=== PATIENT | female | born 1955 | race Caucasian/White ===

== ENCOUNTER 2024-01-11 08:09 | Observation (INO) ==
--- NOTE | 2024-01-10 09:37 | Anesthesiology Consultation ---
Date of Service January 10, 2024 Assessment & Plan (1) Encounter for pre-operative examination: Chart Review Chart Review: Pending: Refer to Additional Notes / Consult section (please obtain most recent note from Pulm ( in [place]) and most recent cardio note/testing ([facility]; per PCP note pt had ECHO 10/19/22) for more information) and Patient NOT seen in Pre Admission Testing -Patient is currently scheduled as 23hr OBS. She is NOT a candidate for OPJ per anesthesia guidelines. -CBC ordered for AM of surgery (plt count: 123 on 12/23/23 preop labs) Infectious Disease screening: Per PAT nursing assessment on 01/10/24, No known infectious disease contacts in past 10 days or current infectious disease symptoms. No recent travel outside the country. History Surgery Operation Date: 01/11/24 10:25 Proposed Procedures p Left Total Knee Arthroplasty - Dieudonne Mina MD Height/Weight Height: 5 ft Weight: 79.832 kg Allergies Allergy/AdvReac Type Severity Reaction Status Date / Time No Known Allergies Allergy Verified 01/10/24 07:54 Medications Home Medications Medication Instructions Recorded Confirmed Last Taken Fluid Pill 1 tab PO QAM 01/10/24 01/10/24 Unknown albuterol sulfate 90 mcg/actuation 2 puff inhalation Q6H PRN sob 01/10/24 01/10/24 Unknown aerosol inhaler gabapentin 300 mg capsule 600 mg PO HS 01/10/24 01/10/24 Unknown pramipexole 0.25 mg tablet 0.5 mg PO HS 01/10/24 01/10/24 Unknown simvastatin 40 mg tablet 40 mg PO HS 01/10/24 01/10/24 Unknown valsartan 40 mg tablet 40 mg PO BID 01/10/24 01/10/24 Unknown Past Medical History Medical History (Updated 01/10/24 @ 10:03 by Stacy Jacobsen PA-C) Cigarette smoker COPD (chronic obstructive pulmonary disease) prn inh>1-2x per day History of palpitations f/u [facility] Hyperlipidemia Hypertension Iron deficiency anemia Neuropathy Obesity On home oxygen therapy 3L HS and PRN during day (pt states does not use during the day) RICK (obstructive sleep apnea) uses 3L O2 at night, no CPAP RLS (restless legs syndrome) Urinary incontinence follows with urology; receives botox injections Past Surgical History Surgical History History of bilateral tubal ligation History of esophagogastroduodenoscopy (EGD) History of urologic surgery in office procedure, botox injections for urinary leakage Hx of breast reduction, elective Hx of cardiac cath "at least 10 years ago," [facility], no stents; f/u ph cardio in [place] Hx of cholecystectomy Hx of colonoscopy Hx of gastric bypass 08/24/22 Social History Smoking Status: Current every day smoker Smoking cigarettes per day: <10 Do You Dip or Chew Tobacco: No Hx Alcohol Use: Yes alcohol intake frequency: holidays/special occasions only Hx Substance Use: Yes (medical card) substance use type: marijuana Last Used Substance Other:: once every 3-4 weeks; none for last few weeks Testing Laboratory Results 12/23/23: WBC: 5.04 H/H: 11.4/34.8(L) PLATELETS: 123 (L) SODIUM: 138 POTASSIUM: 3.7 CHLORIDE: 104 CO2: 31.8 BUN: 18.1 CREATININE: 0.86 GLUCOSE: 79 Ha1c: 4.7% PT: 11.7 INR: 1.05 Electrocardiogram Date: 12/23/23 Findings: + NSR @ (62bpm) poor R wave progression
--- NOTE | 2024-01-10 19:20 | History & Physical Report ---
Date of Service January 10, 2024 Assessment & Plan (1) Bilateral primary osteoarthritis of knee: Plan: Severe bilateral knee osteoarthritis. Plan is to proceed with staged knee replacement starting with left knee which has more bone loss. Patient had MRI preop patient-matched implant custom cutting guides for [employer] knee replacement. History of Present Illness Chief Complaint: Severe bilateral knee pain Primary Care Provider: Joyce Michaels 68-year-old female in usual state of health who has progressive severe bilateral knee osteoarthritis. She has had extensive conservative management. Patient has decreased range of motion and pain not relieved by conservative management. Patient has severe degenerative arthritis grade 4 osteoarthritis bilateral knees. Patient presents for staged knee replacement surgery starting with left knee. Patient denies headaches, sweats, fevers, chills, double vision, blurred vision, cough, sore throat, dysphagia, chest pain, n/v/d/c, numbness, tingling, fatigue, urinary symptoms, mood disorders. ROS positive for can have shortness of breath and uses home oxygen. Patient still smokes. Allergies Allergy/AdvReac Type Severity Reaction Status Date / Time No Known Allergies Allergy Verified 01/10/24 07:54 Home Medications Medication Instructions Recorded Confirmed Type Fluid Pill 1 tab PO QAM 01/10/24 01/10/24 History albuterol sulfate 90 mcg/actuation 2 puff inhalation Q6H PRN sob 01/10/24 01/10/24 History aerosol inhaler gabapentin 300 mg capsule 600 mg PO HS 01/10/24 01/10/24 History pramipexole 0.25 mg tablet 0.5 mg PO HS 01/10/24 01/10/24 History simvastatin 40 mg tablet 40 mg PO HS 01/10/24 01/10/24 History valsartan 40 mg tablet 40 mg PO BID 01/10/24 01/10/24 History Past Med/Surg History Problem List (Updated 01/10/24 @ 19:28 by Dieudonne Mina MD) Bilateral primary osteoarthritis of knee Encounter for pre-operative examination Urinary incontinence, mixed Urinary symptom or sign Medical History Aortic stenosis noted on 2020 ECHO; most recent ECHO 04/2023 showed no CAD (coronary artery disease) LAD 60% 2016 cath; other vessels with no significant disease Diastolic CHF Per cardio note 7/24/24: "she is appropriately off guideline directed medical therapy including Entresto and spironolactone due to elevated renal function and potassium levels. She has tolerated valsartan. Patient remains on furosemide. Advised patient to weigh herself daily." Chronic hypoxemic respiratory failure pt to be using O2 3L HS and PRN during day (pt states does not use during the day) Urinary incontinence follows with urology; receives botox injections On home oxygen therapy 3L HS and PRN during day (pt states does not use during the day) RICK (obstructive sleep apnea) uses 3L O2 at night, no CPAP (she is prescribed CPAP) Obesity Cigarette smoker Iron deficiency anemia History of palpitations f/u [facility] [place] [facility] COPD (chronic obstructive pulmonary disease) stage III severe per pulm (FEV1 30-49%); pt currently not using maintenance inhalers; only using rescue inhaler 1-3 times per day Neuropathy RLS (restless legs syndrome) Hyperlipidemia Hypertension Surgical History Hx of cardiac cath "at least 10 years ago," [facility], no stents; f/u ph cardio in [place] Hx of breast reduction, elective History of bilateral tubal ligation History of urologic surgery in office procedure, botox injections for urinary leakage Hx of cholecystectomy Hx of gastric bypass 08/24/22 History of esophagogastroduodenoscopy (EGD) Hx of colonoscopy Social History Smoking Status: Current every day smoker Tobacco Type: Cigarettes Cigarettes Per Day: <10; Second Hand Exposure: No; Do You Dip or Chew Tobacco: No; Tobacco Cessation Education Requested by Patient: No Hx Alcohol Use: Yes Hx Substance Use: Yes (medical card) Last Used Substance Other:: once every 3-4 weeks; none for last few weeks Preferred Language: Angolan Communication Ability: Effective 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 Beliefs That Will Affect Care: None Current Living Situation: Spouse and Family Other Information That Helps Us Care for You: No Feels Safe at Home: Yes Safety Concerns: Feels Safe At This Time Assistive Devices: Denture - Upper, Denture - Lower and Glasses Review of Systems All systems reviewed & are unremarkable except as noted in HPI & below Physical Exam Constitutional: WD/WN, vitals as above Respiratory: normal respiratory effort; no respiratory distress Cardiovascular: Rate/Rhythm: regular rate and regular rhythm Musculoskeletal: Antalgic gait bilateral varus knees medial joint line tenderness bilateral swelling is mild. 0 through 70 degrees passive motion on the right and 25 to 90 degrees passive motion on the left. Bilateral knee contractures extension on right and flexion on left. Lower neurovascular system intact. Skin: no rashes, warm and dry Neurologic: normal touch/pain/proprioception Psychiatric: A+Ox3, euthymic affect Results & Data Diagnostic Findings X-rays bilateral knees demonstrate end-stage bilateral knee osteoarthritis with femur being subluxed medially on both of the tibias with tricompartmental osteophytes tricompartmental osteoarthritis [id number] subchondral sclerosis 6 subchondral cystic changes both knees with large osteophytes on the left than the right knee more bone loss on the left than the right knee
[~2024-01-11 08:09] MED LIST: BUPIVACAINE 0.5 % 5 MG/1 ML PF 10ML VIAL ONE; ROPIVACAINE 0.5% 5 MG/ML 30 ML VIAL ONE
[2024-01-11] MEDS ORDERED: ATROPINE SULFATE 0.1 MG/ML 10ML SYR IV PRN (08:50)
[2024-01-11] MEDS ORDERED: PROMETHAZINE HCL 6.25 MG in SODIUM CHLORIDE 0.9% 50 ML IV PRN (08:50)
[2024-01-11] MEDS ORDERED: ePHEDrine sulfate 50 MG/ML AMP IV PRN (08:50)
[2024-01-11] MEDS ORDERED: HYDROmorphone INJ 1 MG/ML SYRINGE IV PRN (08:50)
[2024-01-11] MEDS: LR 500ML BOLUS, THEN 15ML/HR IV SCH (08:54)
[2024-01-11] MEDS: LR 60ML/HR IV SCH (08:55)
[2024-01-11] MEDS: GABAPENTIN 300 MG CAP PO SCH ×2 (08:57→21:15)
[2024-01-11] MEDS: CeleBREX 200 MG CAP PO SCH ×2 (08:57→21:16)
[2024-01-11] MEDS: METOCLOPRAMIDE HCL 10 MG TABLET PO SCH (08:57)
[2024-01-11] MEDS: dexAMETHasone**PF** 10 MG/ML VIAL IV SCH (08:57)
[2024-01-11] MEDS: FAMOTIDINE 20 MG TAB PO SCH (08:57)
[2024-01-11] MEDS: ACETAMINOPHEN 500 MG TAB PO SCH ×2 (08:57→21:36)
[2024-01-11 09:00] LABS: Hematocrit (blood only) 33.5 % (37.0-47.0); Hemoglobin 11.4 g/dl (12.0-16.0); Mean Corpuscular Hemoglobin 30.7 pg (25.0-34.0); Mean Corpuscular Volume 90.3 fL (80.0-100.0); Platelet Count 109 K/uL (130-400); RDW Coefficient of Variation 12.1 % (11.5-14.5); RDW Standard Deviation 40.2 fL (36.4-46.3); Red Blood Count 3.71 M/uL (4.20-5.40); White Blood Count 7.32 K/ul (4.8-10.8)
[2024-01-11] MEDS ORDERED: MIDAZOLAM HCL 1 MG/ML 2ML VIAL ONE (10:54)
[2024-01-11] MEDS: TRANEXAMIC ACID 1,000 MG **IV Pre-op IV SCH (11:02)
--- NOTE | 2024-01-11 11:06 | History & Physical Bridge Note ---
Date of Service January 11, 2024 History & Physical Bridge Note I have examined the patient, reviewed the History & Physical and in the interval since the performance of the History & Physical I have noted the following changes of clinical significance: no changes noted
[2024-01-11] MEDS ORDERED: LIDOCAINE 2% 2 ML VIAL/AMP(20MG/ML) INFIL ONE (11:12)
[2024-01-11] MEDS ORDERED: PHENYLEPHRINE HCL 10 MG/ML VIAL ONE (11:12)
[2024-01-11] MEDS ORDERED: PROPOFOL IV EMULSION 10 MG/ML 20 ML VIAL IV ONE (11:12)
[2024-01-11] MEDS: ceFAZolin 2000MG 2,000 MG/15 ML SYR IV SCH ×2 (11:36→21:03)
[2024-01-11] MEDS: ORTHO JOINT ANESTHETIC ONE (12:23)
[2024-01-11] MEDS: TRANEXAMIC ACID 1,000 MG **IV Intra-op IV SCH (13:42)
[2024-01-11] MEDS: ROPIVACAINE 0.5% HCL/PF 246 MG, Ketorolac (*for OR use only*) 30 MG in SODIUM CHLORIDE ... INFIL SCH (13:50)
--- NOTE | 2024-01-11 14:34 | Operative Report ---
Post Operative Report Pre & Post Diagnosis Operation Date: 01/11/24 10:25 Pre-Op Diagnosis: Left Knee Osteoarthritis Post-Op Diagnosis: Left Knee Osteoarthritis I identified the patient and participated in the time-out.: Yes Procedure Operation Date: 01/11/24 10:25 Actual Procedures p Left Total Knee Arthroplasty(Left), jordin and Acticoat superficial wound VAC application- Dieudonne Mina MD Surgeon Dieudonne Mina MD Still Operator Batch Or Continuous Saqib NOBLE Estimated Blood Loss 15 Findings Consistent with Post-Op Diagnosis Specimens Bone cuts Drains 2 Hemovac Anesthesia Type MAC Spinal Regional Complications none Disposition Disposition: Recovery Room Indications 68-year-old female whose had severe bilateral knee osteoarthritis extensive conservative management. She has substantial contractures of both of her knees and left knee specifically has severe tricompartmental osteoarthritis subluxation femur medial on the tibia [id number] medial and lateral compartments advanced patellofemoral osteoarthritis and limited range of motion with flexion contracture and extension contracture. Description of Procedure The patient was taken to the operating room and anesthetized under spinal MAC regional block. Patient was placed supine on the the operating table. A pneumatic tourniquet was placed about the left upper thigh. The knee exam demonstrated varus knee no pseudolaxity range of motion 30 degrees through 80 degrees only. The involved leg was elevated exsanguinated with Esmarch bandage and the pneumatic tourniquet was raised to 300 millimeters mercury. A longitudinal incision was made across the anterior knee. Skin flaps were elevated. An incision was made into the medial retinaculum and extended up into the mid third of the quadriceps tendon and extended down to the tibial tubercle. Intra-articular findings demonstrated severe tricompartmental osteoarthritis grade 4 medial and lateral compartment and patellofemoral joint. Multiple loose bodies massive posterior osteophytes medial greater than lateral, chronic ACL tear, chronic medial meniscus tear. The knee was exposed by excising posterior cruciate ligament and menisci. The infrapatellar fat pad was resected. The fat pad over the anterior femur at the upper aspect of the articular surface was resected for placement of the component in that area. Some scarred synovial tissue in the suprapatellar pouch was resected. The [employer] journey 2.0 posterior stabilized total knee arthroplasty system was utilized for the procedure. In order to get exposure had to address the patella first as the knee was too tight to expose the femur. The patella was retracted slightly everted a subperiosteal peel lateral release was performed around patella some osteophytes removed and was able to vidal the patella better and then measured the patella with an reproduced with using freehand cut technique and a 32 mm symmetrical patella component was chosen. The guide was placed and drill holes were made and excess lateral facet was beveled off to prevent any impingement. This time we are able to release some scarred lateral synovial bands and then flexed the knee up to put the distal femoral cutting guide in place. The custom femoral cutting guide was pinned in position. All 4 drill holes were made and the superior pins were maintained intact and then a distal femoral cutting guide was adjusted to resect a +2 more cut off the femur due to the flexion contracture. Then the distal femoral cut was made with the oscillating saw.. The size 4, 5 in 1 cutting block was placed. The anterior posterior and chamfer cuts were made. All the osteophytes were removed with a rongeur. The tibia was then subluxed. The custom tibial cutting block was assessed but did not appear to have appropriate fit so we went to an external tibial cutting guide which was pinned in position after being adjusted for appropriate slope and appropriate alignment to the tibial shaft. the proximal tibial cut was made with the oscillating saw. There were cysts along the medial tibial plateau which were curetted out. Flexion and extension gaps were balanced. A laminar golf course laborer was utilized. We were able to now access the massive posterior osteophytes which were removed with the angled curette and curved osteotome. No releases were required. The size 4 tibial trial was externally rotated in line with the tibial tubercle and pinned in position. The punch for the stem was used. The femoral trial was inserted and centered the notch cutting devices were used and the collet was placed. Tibial trials were used for the insert. The size 12 posterior stabilized trial gave balanced ligaments through full extension and I was able to get 110 to115 de grees of flexion which was a significant improvement from preoperative status. There was complete stability through full range of motion.Patella tracking was assessed with range of motion. The patella tracked centrally. The trials were removed. The Orthomix anesthetic cocktail was injected per protocol. The cut bone surfaces and soft tissue were copiously irrigated with pulsatile lavage saline solution. The final components were cemented with Refobacin cement. The final components were [employer] journey size 4 left femoral component, 4 left tibial component, 12 mm left posterior stabilized tibial polyethylene and 32 mm symmetrical patella. Xperience irrigation was placed over metal tray prior to polyethyle insertion. After the cement cured, the knee was then copiously irrigated with pulsatile lavage Xperience solution. 2 drains were brought out laterally connected to Hemovac. The quadriceps tendon and medial retinaculum were repaired with interrupted #2 FiberWire sutures around the medial retinaculum and distal quad tendon and 1 suture at the apex of the quad split proximally. Another #2 FiberWire was placed at the level of the tibial polyethylene. A 0 strata fix running locking suture was placed from the superior quad split down to the inferior pole the patella. The distal medial retinaculum was repaired with interrupted [id number] #1 Vicryl sutures. The knee was taken through full range of motion and repair was secure. Knee range of motion was 0 through 115 degrees. the subcutaneous tissues were closed with 2-0 Vicryl sutures. The tourniquet was let down at this time and there was normal return of circulation. Tourniquet time was 2 hours. The skin was closed with surgical modesto. A jordin and Acticoat superficial wound VAC was applied. . The patient tolerated the procedure well. My physician assistant designer Saqib NOBLE participated as surgery assistant and was integral part in all aspects of the procedure including prepping, draping, leg positioning, soft tissue retraction, instrument management and assisted in the closure , jordin and Acticoat superficial wound VAC application and will participate in postoperative care the patient. I attest to the content of the Intraoperative Record and any orders documented therein. Any exceptions are noted below.
--- NOTE | 2024-01-11 14:36 | Anesthesiology Progress Note ---
Date of Service January 11, 2024 Anesthesia Post Procedure Vital Signs Vital Signs: Temp Pulse Resp BP Pulse Ox O2 Del Method 01/11/24 08:43 36.8 C 58 L 18 116/72 93 Room Air Pain Intensity Right Elbow: Pain Intensity: 5 Transfer of Care Handoff Completed per policy Notes Mental Status: alert / awake / arousable and participated in evaluation Nausea / Vomiting: adequately controlled Pain: adequately controlled Airway Patency, RR, SpO2: stable & adequate BP & HR: stable & adequate Hydration State: stable & adequate Anesthetic Complications: no major complications apparent and Pt Satisfied with anesthetic care
--- NOTE | 2024-01-11 14:58 | XRay Report ---
XR knee LT 1 or 2V routine HISTORY: 68 years-old Female Surgical Post Op left knee arthroplasty COMPARISON: None TECHNIQUE: 2 views of the left knee FINDINGS: Total joint arthroplasty with patellar resurfacing. Anterior midline skin modesto with surgical drain age catheter. Expected postoperative soft tissue swelling with deep tissue air. No acute fracture or unexpected opaque foreign body. IMPRESSION: Total joint arthroplasty with expected postoperative changes. ACT 112: Negative or not required by law. The above report was generated using voice recognition software. It may contain grammatical, syntax o r spelling errors. Electronically signed by: John Mckay M.D. 01/11/2024 2:55 PM
[2024-01-11] MEDS ORDERED: bisacodyL 10 MG SUPP PR PRN (15:36)
[2024-01-11] MEDS ORDERED: diphenhydrAMINE Capsule 25 MG CAP PO PRN (15:36)
[2024-01-11] MEDS ORDERED: HYDROmorphone INJ 0.5 MG/0.5 ML SYR IV PRN (15:36)
[2024-01-11] MEDS ORDERED: oxyCODONE HCL IR 5 MG TAB (IMMEDIATE RELEASE) PO PRN (15:36)
[2024-01-11] MEDS ORDERED: ONDANSETRON INJ 2 MG/ML 2 ML VIAL IV PRN (15:36)
[2024-01-11] MEDS ORDERED: KETOROLAC TROMETHAMINE 15 MG/ML VIAL IV PRN (15:36)
[2024-01-11] MEDS ORDERED: MAGNESIUM HYDROXIDE SUSP 30 ML UDC PO PRN (15:36)
[2024-01-11] MEDS ORDERED: ALBUTEROL HFA 8 GM INHALER INH PRN (15:36)
[2024-01-11] MEDS ORDERED: NALOXONE HCL 0.4 MG/1 ML VIAL/CARP IV PRN (15:36)
[2024-01-11] MEDS ORDERED: METOCLOPRAMIDE HCL INJ 5 MG/ML 2 ML VIAL IV PRN (15:36)
[2024-01-11] MEDS ORDERED: ALUMINUM/MAGNESIUM SUSP 30 ML UDC PO PRN (15:36)
[2024-01-11] MEDS: SODIUM CHLORIDE 0.9% 1,000 ML IV SCH (16:42)
--- NOTE | 2024-01-11 17:20 | Hospitalist Consultation ---
Date of Consultation January 11, 2024 Assessment & Plan (1) Status post left knee replacement: POD#0 L TKA - management as outlined per primary service - pain control - PT/OT (2) COPD (chronic obstructive pulmonary disease): Chronic - currently only managed by PRN albuterol - supplemental O2 due to chronic respiratory failure during the day (as needed which she does not use) and at HS - Added Duonebs q4h prn dyspnea/wheezing (3) Hypertension: Chronic - Continue valsartan 40mg BID, resume on 01/11 in AM - BMP in AM to monitor renal function (4) Hyperlipidemia: Chronic - Continue simvastatin Plan Chronic medical problems: 1. neuropathy - continue gabapentin 2. RLS - continue pramipexole Utilize SCDs for DVT ppx due to low platelets of 109, would not recommend adding Heparin products to avoid worsening thrombocytopenia. Repeat CBC and BMP in AM. Above plan of care has been d/w Dr. Benjamin, further orders as warranted. Supervising Physician Co-Signing Physician Notes I personally saw and examined the patient. I independently reviewed the labs, EKG, imaging, problem list, medication list, past medical history and family history. I verified all ramos points and agree with Saira Christine PA-C with the following exceptions and/or additions: No acute concerns or questions from the patient. HS RRR, no murmurs, Chest CTAB, Abdo SNT, pins and needles in left foot. VTE Prophylaxis / pain / bowel management per primary team - No change to above plan. History of Present Illness Reason for Consultation: Medical management Requesting Physician: Dr. Mina Attending Physician: Dieudonne Mina MD History of Present Illness Niharika is a 68 yo F with a pmhx of HTN, COPD, chronic nocturnal hypoxemia, OA, HLD and neuropathy who was admitted to the hospital today for elective left total knee arthroplasty due to osteoarthritis and chronic knee pain that failed conservative measures. She was taken to the OR today, where she received spinal anesthesia, pain cocktail including Ropivacaine, Bupivacaine, Decadron, TXA and prophylactic Ancef. She had no immediate complications and has been transitioned back to her room where she is currently seen. She is currently on 2L of supplemental O2, which she normally only wears at HS. She denies feeling short of breath or experiencing any cough or wheezing. She states that she always has chest congestion this time of year. She frequently uses her albuterol inhaler during this time of year, but is not currently prescribed a ICS/LABA. She denies chest pain. She is not experiencing any left knee pain. She has no prior history of PE/DVT. She lives in a two story home but is primarily located on the first floor and does not go upstairs and she plans to return home upon discharge. Hospitalists have been consulted for medical management. Allergies Allergy/AdvReac Type Severity Reaction Status Date / Time No Known Allergies Allergy Verified 01/11/24 08:52 Home Medications Medication Instructions Recorded Confirmed Type Fluid Pill 1 tab PO QAM 01/10/24 01/11/24 History albuterol sulfate 90 mcg/actuation 2 puff inhalation Q6H PRN sob 01/10/24 01/11/24 History aerosol inhaler gabapentin 300 mg capsule 600 mg PO HS 01/10/24 01/11/24 History pramipexole 0.25 mg tablet 0.5 mg PO HS 01/10/24 01/11/24 History simvastatin 40 mg tablet 40 mg PO HS 01/10/24 01/11/24 History valsartan 40 mg tablet 40 mg PO BID 01/10/24 01/11/24 History acetaminophen 500 mg tablet 1,000 mg (2 x 500 mg) PO Q8 #90 01/12/24 Rx (Tylenol Extra Strength) tabs aspirin 81 mg tablet,delayed 81 mg PO BID #60 tabs 01/12/24 Rx release celecoxib 200 mg capsule (Celebrex) 200 mg PO BID #60 caps 01/12/24 Rx oxycodone 5 mg tablet 5 mg PO Q4H PRN pain #20 tabs 01/12/24 Rx Patient History Medical History Aortic stenosis noted on 2020 ECHO; most recent ECHO 04/2023 showed no CAD (coronary artery disease) LAD 60% 2016 cath; other vessels with no significant disease Diastolic CHF Per cardio note 10/19/23: "she is appropriately off guideline directed medical therapy including Entresto and spironolactone due to elevated renal function and potassium levels. She has tolerated valsartan. Patient remains on furosemide. Advised patient to weigh herself daily." Chronic hypoxemic respiratory failure pt to be using O2 3L HS and PRN during day (pt states does not use during the day) Urinary incontinence follows with urology; receives botox injections On home oxygen therapy 3L HS and PRN during day (pt states does not use during the day) RICK (obstructive sleep apnea) uses 3L O2 at night, no CPAP (she is prescribed CPAP) Obesity Cigarette smoker Iron deficiency anemia History of palpitations f/u [facility] [place] [facility] COPD (chronic obstructive pulmonary disease) stage III severe per pulm (FEV1 30-49%); pt currently not using maintenance inhalers; only using rescue inhaler 1-3 times per day Neuropathy RLS (restless legs syndrome) Hyperlipidemia Hypertension Surgical History H[facility]; f/u [facility] in [place] Hx of breast reduction, elective History of bilateral tubal ligation History of urologic surgery in office procedure, botox injections for urinary leakage Hx of cholecystectomy Hx of gastric bypass 08/24/22 History of esophagogastroduodenoscopy (EGD) Hx of colonoscopy Social History Smoking Status: Current every day smoker Tobacco Type: Cigarettes Cigarettes Per Day: <10; Second Hand Exposure: No; Do You Dip or Chew Tobacco: No; Tobacco Cessation Education Requested by Patient: No Hx Alcohol Use: Yes Hx Substance Use: Yes (medical card) Last Used Substance Other:: once every 3-4 weeks; none for last few weeks Preferred Language: Azeri Communication Ability: Effective Renewals Specialist Required: No Beliefs That Will Affect Care: None Current Living Situation: Spouse and Family Other Information That Helps Us Care for You: No Feels Safe at Home: Yes Safety Concerns: Feels Safe At This Time Assistive Devices: Denture - Upper, Denture - Lower and Glasses Review of Systems 2 Review of Systems: All systems reviewed and are unremarkable except as noted in HPI and below. Denies fever, chills, fatigue, headache, nasal congestion, sore throat, cough, chest pain, shortness of breath, palpitations, orthopnea, PND, abdominal pain, n/v/d, constipation, dysuria, hematuria, frequency, back pain, joint pain or swelling, easy bruising or bleeding, skin lesions or rashes. Physical Exam 2 Physical Exam: GENERAL: 68 yo well-nourished WF. NAD. EYES: EOMI. PERRLA. Anicteric. HENT: Moist mucous membranes. No scleral icterus. No cervical lymphadenopathy. LUNGS: Nonlabored. Scattered expiratory wheezing. CARDIOVASCULAR: Regular rate and rhythm. ABDOMEN: Soft, non-tender and non-distended. Bowel sounds normoactive x 4 quad. EXTREMITIES: L knee dressed and wrapped. Hemovac noted. NV intact. Non-tender. Peripheral pulses +2/4. NEUROLOGIC: A&O x3. No focal neurological deficits. CN II-XII grossly intact. PSYCHIATRIC: Cooperative. Appropriate mood and affect. SKIN: Warm, dry, intact. No rashes or lesions. Results & Data Results & Data Vital Signs (Past 12 Hours) Vital Signs Temp Pulse Pulse Resp BP Pulse Ox O2 Del Method 01/11/24 16:49 37.2 C 83 17 148/78 H 94 Nasal Cannula 01/11/24 16:09 37.2 C 84 17 132/67 95 Nasal Cannula 01/11/24 15:30 36.8 C 77 17 135/71 94 Nasal Cannula 01/11/24 15:00 77 16 151/60 H 93 Oxymask 01/11/24 14:50 76 21 135/63 97 Oxymask 01/11/24 14:40 36.7 C 75 19 137/61 97 Oxymask 01/11/24 14:30 76 17 152/65 H 97 Oxymask 01/11/24 14:24 36.7 C 77 18 155/72 H 98 Oxymask 01/11/24 08:43 36.8 C 58 L 18 116/72 93 Room Air O2 Flow Rate 01/11/24 16:49 2 01/11/24 16:09 2 01/11/24 15:30 2 01/11/24 15:00 3 01/11/24 14:50 3 01/11/24 14:40 3 01/11/24 14:30 5 01/11/24 14:24 5 01/11/24 08:43 Laboratory Results 01/11/24 08:37 Diagnostic Findings Knee X-Ray 01/11/24 14:27 XR knee LT 1 or 2V routine HISTORY: 68 years-old Female Surgical Post Op left knee arthroplasty COMPARISON: None TECHNIQUE: 2 views of the left knee FINDINGS: Total joint arthroplasty with patellar resurfacing. Anterior midline skin [place] with surgical drainage catheter. Expected postoperative soft tissue swelling with deep tissue air. No acute fracture or unexpected opaque foreign body. IMPRESSION: Total joint arthroplasty with expected postoperative changes. ACT 112: Negative or not required by law. The above report was generated using voice recognition software. It may contain grammatical, syntax or spelling errors. Electronically signed by: John Mckay M.D. 01/11/2024 2:55 PM PG Care Time/CCT Total # of Minutes Spent Total Time Spent with Patient: Total time spent is greater than 50% in coordination of care (as documented) at patient's floor/unit and/or counseling patient: 61 minutes Coding Level of Care Code 33970 IN/OBS CONSULT LVL 4,60M Diagnoses Status post left knee replacement Z96.652 COPD (chronic obstructive pulmonary disease) J44.9 Hypertension I10 Hyperlipidemia E78.5
[2024-01-11] MEDS ORDERED: ALBUT/IPRATROP 3MG/0.5MG NEB 3 ML VIAL NEB PRN (17:40)
[2024-01-11] MEDS ORDERED: VALSARTAN 80 MG TAB PO SCH (21:00)
[2024-01-11] MEDS: TRANEXAMIC ACID / 0.7% NACL 1,000 MG/100 ML BAG IV SCH (21:03)
[2024-01-11] MEDS: ASPIRIN 81 MG ECTAB PO SCH (21:15)
[2024-01-11] MEDS: PRAMIPEXOLE DIHYDROCHLO 0.5 MG TAB PO SCH (21:15)
[2024-01-11] MEDS: SIMVASTATIN 40 MG TAB PO SCH (21:16)
[2024-01-11] MEDS: SENNA 8.6 MG TAB PO SCH (21:36)
[2024-01-11] MEDS: DOCUSATE SODIUM 100 MG CAP PO SCH (21:36)
[2024-01-12 07:23] VITALS: BP 122/65; PULSE 56; RESP 16; TEMP 97.7; O2SAT 94
[2024-01-12 07:32] LABS: Calcium 8.9 mg/dl (8.6-10.3); Potassium 4.2 mmol/L (3.5-5.1)
[2024-01-12 07:38] LABS: Creatinine Clr Calc Pharmacy 53.8 ml/min
[2024-01-12 07:39] LABS: Hematocrit (blood only) 29.5 % (37.0-47.0); Hemoglobin 9.8 g/dl (12.0-16.0); Mean Corpuscular Hemoglobin 30.7 pg (25.0-34.0); Mean Corpuscular Hgb Conc 33.2 g/dL (32.0-36.0); Mean Corpuscular Volume 92.5 fL (80.0-100.0); Mean Platelet Volume 13.2 fL (9.4-12.4); Platelet Count 91 K/uL (130-400); Platelet Estimate Decreased (Normal); RDW Coefficient of Variation 11.9 % (11.5-14.5); RDW Standard Deviation 39.8 fL (36.4-46.3); Red Blood Count 3.19 M/uL (4.20-5.40); White Blood Count 8.78 K/ul (4.8-10.8)
--- NOTE | 2024-01-12 08:08 | Orthopedic Progress Note ---
Date of Service January 12, 2024 Assessment & Plan (1) Bilateral primary osteoarthritis of knee: Plan: Severe bilateral knee osteoarthritis. Plan is to proceed with staged knee replacement starting with left knee which has more bone loss. Patient had MRI preop patient-matched implant custom cutting guides for [employer] knee replacement. Postop day 1 left knee replacement doing very well. We will DC the Hemovac drain today and discharge home and she will do outpatient physical therapy likely at [facility] in [place]. Admission and Anticipated Discharge Date Admission Date: January 11, 2024 Subjective No pain patient doing very well. Review of Systems Review of Systems: No symptoms unremarkable Physical Exam Musculoskeletal: Dressing dry and intact. Drainage from drain tube is clear now no active blood. Circulation sensorimotor exam intact. Independent straight leg raise. Results & Data Vital Signs (Past 12 Hours) Vital Signs Temp Pulse Resp BP Pulse Ox O2 Del Method O2 Flow Rate 01/12/24 07:22 36.5 C 56 L 16 122/65 94 Room Air 01/12/24 03:29 36.7 C 59 L 18 131/55 L 95 Nasal Cannula 2 01/11/24 23:06 36.6 C 66 18 164/67 H 94 Nasal Cannula 2 01/11/24 20:15 Nasal Cannula 2 Diagnostic Findings Well aligned left total knee replacement.
[2024-01-12] MEDS: dexAMETHasone 10 MG in SYRINGE 0 ML IV SCH (08:40)
[2024-01-12] MEDS: VALSARTAN 80 MG TAB PO SCH (08:41)
[2024-01-12] MEDS: MULTIVITAMIN TAB PO SCH (08:41)
--- NOTE | 2024-01-12 11:02 | Hospitalist Progress Note ---
Date of Service January 12, 2024 Assessment & Plan (1) Status post left knee replacement: Plan: POD#1 L TKA - management as outlined per primary service - pain control - PT/OT (2) Thrombocytopenia: Plan: Platelets downtrending 109--> 91 - no prior for comparison - pt denies any hx of bleeding disorders or lab abnormalities - but does state she does bleeds easily Recommend outpatient CBC with PCP and further workup if indicated (3) COPD (chronic obstructive pulmonary disease): Plan: Chronic - currently only managed by PRN albuterol - supplemental O2 due to chronic respiratory failure during the day (as needed which she does not use) and at HS - Added Duonebs q4h prn dyspnea/wheezing (4) Hypertension: Plan: Chronic - Continue valsartan 40mg BID, resume on 01/11 in AM -AM BMP without CHELSY (5) Hyperlipidemia: Plan: Chronic - Continue simvastatin Plan Chronic medical problems: 1. neuropathy - continue gabapentin 2. RLS - continue pramipexole Dispo: medically stable Admission and Anticipated Discharge Date Admission Date: January 11, 2024 Subjective Patient reports that she is feeling great, sister at bedside. She denies any hx of bleeding disorders or ever being told that her blood work is abnormal. Discussed her current platelet level. she is agreeable to follow up with her PCP Plan for discharge home today per ortho Review of Systems Review of Systems: All systems reviewed & are unremarkable except as noted in Subjective Physical Exam Physical Exam: General: NAD, VS as above HEENT - no nose bleeding or gum bleeding Resp: normal respiratory effort, lungs clear to auscultation CV: RRR, no murmur, Extremities: Moves all extremities. incison site c/d/i. Area of drain removal with saturated dressing - RN Notified Neuro: A&O x3, Results & Data Results & Data Vital Signs (Past 12 Hours) Vital Signs Temp Pulse Resp BP Pulse Ox O2 Del Method O2 Flow Rate 01/12/24 07:22 97.7 F 56 L 16 122/65 94 Room Air 01/12/24 03:29 98.1 F 59 L 18 131/55 L 95 Nasal Cannula 2 01/11/24 23:06 97.9 F 66 18 164/67 H 94 Nasal Cannula 2 PG Care Time/CCT Total # of Minutes Spent Total Time Spent with Patient: Total time spent is greater than 50% in coordination of care (as documented) at patient's floor/unit and/or counseling patient: Coding Level of Care Code 37207 SUB INP/OBS CARE MIN Diagnoses Status post left knee replacement Z96.652 Thrombocytopenia D69.6 COPD (chronic obstructive pulmonary disease) J44.9 Hypertension I10 Hyperlipidemia E78.5
== END 2024-01-12 11:30 | disposition home or self-care (01) ==
LOC: ASU 08:09 → 3E 08:09